=== PATIENT | male | born 1985 | race Two or more races ===

== ENCOUNTER 2022-03-19 19:13 | Emergency (ER) | payer OTHER ==
[~2022-03-19] VITALS: Ht 180.3 cm; Wt 85.0 kg
[2022-03-19 19:28] VITALS: BP 126/74
[2022-03-19] MEDS ORDERED: HYDROcodone/APAP 5/325MG 1 TAB TABLET PO ONE (19:45)
--- NOTE | 2022-03-19 21:03 | RAD ---
XR FOOT_RIGHT 3 VIEWS, XR EXAM OF ANKLE_RIGHT 3VIEWS History: Reason: PAIN / Spl. Instructions: / History: Technique: 3 views right ankle 3 views right foot Comparison: None. Findings: Lateral ankle soft tissue swelling. No dislocation. No acute fracture. Ankle joint effusion. Normal alignment of the foot. No acute fracture. Impression: 1. No acute osseous abnormality. 2. Lateral ankle soft tissue swelling. 3. Ankle joint effusion. Electronically signed by: Darshan Mckoy DO (03/19/2022 9:00 PM) [facility]
[2022-03-19] MEDS ORDERED: IBUP-1027 PO (21:13)
--- NOTE | 2022-03-19 21:13 | PHYS DOC ---
Past Medical History Past Surgical History: No Surgical History General Adult EDM: Chief Complaint: FOOT INJURY PAIN HPI: HPI: Patient is a 36 year old male with no significant past medical history who presents to the emergency department today for complaints of right ankle pain. Patient states that about 11 AM he was playing soccer when he stepped in a hole on the soccer field. He states he had pain to his ankle. He was able to bear weight immediately. He states he went home and took a nap and woke up the pain was worse and therefore decided to present to the emergency department for evaluation. He denies any other pain or injury. He has been walking with a limp since waking up. Review of Systems: Review of Systems: Constitutional: Denies fever or chills. [] Eyes: Denies change in visual acuity. [] HENT: Denies nasal congestion or sore throat. [] Respiratory: Denies cough or shortness of breath. [] Cardiovascular: Denies chest pain or edema. [] GI: Denies abdominal pain, nausea, vomiting, bloody stools or diarrhea. [] : Denies dysuria. [] Musculoskeletal: Denies back pain Integument: Denies rash. [] Neurologic: Denies headache, focal weakness or sensory changes. [] Endocrine: Denies polyuria or polydipsia. [] Lymphatic: Denies swollen glands. [] Psychiatric: Denies depression or anxiety. [] Heart Score: C/O Chest Pain: No Family History: Family History: Noncontributory Current Medications: Current Medications Medications (Trade) Dose Ordered Sig/Franck Start Time Stop Time Status Last Admin Dose Admin Acetaminophen/ Hydrocodone Bitart (Lortab 5/325) 1 tab 1X ONCE 03/19/22 19:45 03/19/22 19:46 DC 03/19/22 19:39 1 TAB Allergies: Allergies: Allergies Coded Allergies Type Severity Reaction Last Updated Verified No Known Drug Allergies 03/19/22 No Physical Exam: PE: Constitutional: Well developed, well nourished, no acute distress, non-toxic appearance. [] HENT: Normocephalic, atraumatic, bilateral external ears normal, oropharynx moist, no oral exudates, nose normal. [] Eyes: PERRLA, EOMI, conjunctiva normal, no discharge. [] Neck: Normal range of motion, no tenderness, supple, no stridor. [] Cardiovascular:Heart rate regular rhythm, no murmur [] Lungs & Thorax: Bilateral breath sounds clear to auscultation [] Abdomen: Bowel sounds normal, soft, no tenderness, no masses, no pulsatile masses. [] Skin: Warm, dry, no erythema, no rash. [] Back: No tenderness, no CVA tenderness. [] Extremities: Tenderness palpation posterior to both the medial and lateral malleoli. No tenderness to palpation over the cuboid or navicular bones. No tenderness to palpation over the fifth metatarsal. Patient has no proximal fibular tenderness. Neurologic: Alert and oriented X 3, normal motor function, normal sensory function, no focal deficits noted. [] Psychologic: Affect normal, judgement normal, mood normal. [] Current Patient Data: Vital Signs: Vital Signs Date Time Temp Pulse Resp B/P (MAP) Pulse Ox O2 Delivery O2 Flow Rate FiO2 03/19/22 19:28 98.0 75 20 126/74 (91) 98 Room Air 98.0 EKG: EKG: [] Radiology/Procedures: Radiology/Procedures: XR FOOT_RIGHT 3 VIEWS, XR EXAM OF ANKLE_RIGHT 3VIEWS History: Reason: PAIN / Spl. Instructions: / History: Technique: 3 views right ankle 3 views right foot Comparison: None. Findings: Lateral ankle soft tissue swelling. No dislocation. No acute fracture. Ankle joint effusion. Normal alignment of the foot. No acute fracture. Impression: 1. No acute osseous abnormality. 2. Lateral ankle soft tissue swelling. 3. Ankle joint effusion. Electronically signed by: Darshan Mckoy DO (03/19/2022 9:00 PM) [facility] Impression: Acute right ankle sprain Course & Med Decision Making: Course & Med Decision Making Patient remained hemodynamically stable while in the emergency department. SH was evaluated at the bedside with a physical exam. Patient positive by [place] ankle rules Foot and ankle x-rays will be obtained. They showed no evidence of any acute fracture or dislocation. Patient's pain was treated with Lortab in the emergency department. He was placed in an gala wrap. He will be discharged home with a prescription for ibuprofen and follow-up with his PCP this week. Rick Disclaimer: Rick Disclaimer: This electronic medical record was generated, in whole or in part, using a voice recognition dictation system. Departure Departure Impression: Primary Impression: Right ankle sprain Disposition: HOME / SELF CARE / HOMELESS Condition: IMPROVED Patient Instructions: Ankle Sprain, [id number] Additional Instructions: Please follow up with your PCP this week. Scripts Ibuprofen (IBUPROFEN) 400 Mg Tablet 400 MG PO PRN Q6HRS PRN for PAIN, #12 TAB Prov: REFUGIO RAMSEY MD 03/19/22 REFUGIO RAMSEY MD March 19, 2022 21:13
== END 2022-03-19 21:30 | disposition home or self-care (01) ==
LOC: ER 19:13
DX: S93.401A Sprain of unspecified ligament of right ankle, initial encounter (principal); W22.8XXA Striking against or struck by other objects, initial encounter; Y93.66 Activity, soccer; Y92.89 Other specified places as the place of occurrence of the external cause; Y99.8 Other external cause status
CPT/HCPCS: 73610; 73630; 99283; A6450